=== PATIENT | male | born 1985 | race Hispanic/Latino ===

== ENCOUNTER 2023-10-29 18:00 | Emergency (ER) | payer SELFPAY ==
[2023-10-29 18:05] VITALS: BP 124/77
[2023-10-29 18:14] LABS: Glucose - Point of Care 92 mg/dl (70-99)
[2023-10-29 18:15] VITALS: BMI 25.6
--- NOTE | 2023-10-29 19:38 | ED.GENMED ---
History of Present Illness
General
Chief Complaint: Alcohol Problem
Source: patient and ambulance crew
Exam Limitations: none
Time Seen by Provider: 10/29/23 18:16
Nursing documentation reviewed up to this point in time: agreed with
History of Present Illness
History of Present Illness:
Patient found by police sleeping behind beer distributor. Brought to ED. He denies any injuries/complaints. Admits to drinking 6or 7 beers [employer]. Awake alert anc cooperative
Past History
Past History
ED Past Medical History: None
ED Past Surgical History: None
Review of Systems
Review of Systems
Allergies reviewed?: Yes
All Other Systems: ROS reviewed and negative except as documented in HPI and ROS
Constitutional: Reports no symptoms
EENT: Reports no symptoms
Respiratory: Reports no symptoms
Cardiac: Reports no symptoms
ABD/GI: Reports no symptoms
: Reports no symptoms
Musculoskeletal: Reports no symptoms
Skin: Reports no symptoms
Neurological: Reports no symptoms
Psychiatric: Reports no symptoms
Phy Exam
General Physical Exam
General Presentation: well appearing and no apparent distress
General age: appears stated age
General Skin: warm and dry
General Habitus: normal
General Mental: alert
Cardiovascular Exam
Cardiovascular Exam: regular rate/rhythm and no edema
Musculoskeletal Exam
Musculoskeletal Exam: full ROM and neuro vasc intact
Skin Exam
Skin Exam: normal color, warm/dry and no rash
Psychiatric Exam
Psychiatric Exam: normal mood/affect
Scores
Withdrawal Assessment of Alcohol
Withdrawal Assessment Completed?: Not applicable
Course
Vital Signs
Initial and Last Documented VS:
Initial Vital Signs
Temp Pulse Resp BP Pulse Ox
98.4 F 84 16 124/77 97
10/29/23 18:05 10/29/23 18:05 10/29/23 18:05 10/29/23 18:05 10/29/23 18:05
Last Documented Vital Signs
Temp Pulse Resp BP Pulse Ox
98.4 F 84 16 124/77 97
10/29/23 18:05 10/29/23 18:05 10/29/23 18:05 10/29/23 18:05 10/29/23 18:05
*Critical Care Note
Total Time (30-74mins, 75-104mins- exclusive of procedures): Not Applicable
Update Note
Update Note:
Patient discharged home withfamily.
ED Attending Note
-
Portions of this chart may have been created with voice recognition software.� Occasional wrong word or��sound alike� substitutions may have occurred due to the inherent limitations of voice recognition software.
Discharge Plan
Departure
Patient Disposition: Home (Routine Discharge)
Date of Disposition: 10/29/23
Time of Disposition: 19:37
Patient with high blood pressure during this ER visit?: No
Condition: Good
Discharge Problem:
Alcohol intoxication
Instructions: Alcohol Use Disorder (DC)
Activity Restrictions/Additional Instructions:
Follow up with your healthcare provider.
Interventions
Interventions:
*Risk Screen - Suicide Last Done: 10/29/23 18:05
*General Assessment Last Done: 10/29/23 18:05
*Neglect/Abuse Screening Last Done: 10/29/23 18:05
*ED COVID-19 Vaccine History Last Done: 10/29/23 18:05
*Nursing Disposition Last Done: 10/29/23 19:50
ED- Neurological Assessment Last Done: 10/29/23 18:17
ED-Psychological Assessment Last Done: 10/29/23 18:19
Discharge Date and Time
Discharge Date/Time: 10/29/23 19:51
Print Language: ETHIOPIAN
== END 2023-10-29 19:51 | disposition home or self-care (01) ==
LOC: EMR 18:00
PROVIDERS: EMERGENCY PHYSICIAN Emergency Medicine
DX: F10.129 Alcohol abuse with intoxication, unspecified (principal)
CPT/HCPCS: 99282; 82962